=== PATIENT | female | born 1980 | race Caucasian/White ===

== ENCOUNTER 2022-11-24 14:19 | Emergency (ER) | payer SELFPAY ==
[2022-11-24 14:21] VITALS: BP 131/74; PULSE 119; RESP 18; TEMP 37.1; O2SAT 97
[2022-11-24 15:41] VITALS: BP 134/88; PULSE 108; RESP 18; O2SAT 98
--- NOTE | 2022-11-24 15:47 | PC.NURSE ---
pt left d/t wait time
== END 2022-11-24 16:00 | disposition left against medical advice (07) ==
LOC: ANHED 15:57
DX: M79.672 Pain in left foot (principal); M79.671 Pain in right foot
CPT/HCPCS: 99199

== ENCOUNTER 2022-12-12 14:32 | Outpatient (CLI) | payer OTHER, SELFPAY ==
--- NOTE | ~2022-12-12 | XR_ITS ---
XR_[id number] 12/12/2022 15:00 Indication: Osteoarthritis. Procedure: 3 views of the cervical spine Comparison: No prior studies for comparison. Findings: Normal cervical alignment. Vertebral body and disc heights are preserved. No fracture, subl uxation or dislocation. No prevertebral soft tissue swelling. Odontoid process is unremarkable. Lung apices are normal. Impression: 1: No significant abnormality of the cervical spine. Reviewed, dictated and finalized at location A. Impression: 1: No significant abnormality of the cervical spine.
--- NOTE | ~2022-12-12 | XR_ITS ---
LUMBAR SPINE INDICATION: Arthritis. TECHNIQUE: 3 views lumbar spine COMPARISON: None FINDINGS: Normal lumbar alignment. There is mild disc narrowing at L4-5. Vertebral body heights are m aintained. No acute fracture or traumatic malalignment. Pedicles are intact. Sacral foramen are symme tric. There are tubal ligation clips in the pelvis. IMPRESSION: 1: Mild lumbar spondylosis. Reviewed, dictated and finalized at location A. IMPRESSION: 1: Mild lumbar spondylosis.
--- NOTE | ~2022-12-12 | XR_ITS ---
XR hand BI arthritis min 3V 12/12/2022 15:00 INDICATION: Arthritis. PROCEDURE: 4 views of each hand COMPARISON: No prior studies for comparison. FINDINGS: Fracture, dislocation or subluxation is not identified. No significant degenerative change or joint space narrowing. No erosive changes. The soft tissues appear within normal limits. No fore ign bodies are identified. IMPRESSION: 1: No significant bone or joint abnormality. Reviewed, dictated and finalized at location A.
--- NOTE | ~2022-12-12 | XR_ITS ---
XR sacroiliac joints min 3V 12/12/2022 15:00 Indication: Osteoarthritis. Procedure: 3 views of the sacroiliac joints Comparison: No prior studies for comparison. Findings: Sacroiliac joints are symmetric bilaterally without significant degenerative change, ankylo sis or erosion. There are tubal ligation clips. Sacral foramen are symmetric. Impression: 1: No significant abnormality of the sacroiliac joints. Reviewed, dictated and finalized at location A. Impression: 1: No significant abnormality of the sacroiliac joints.
[2022-12-12 15:56] LABS: Uric Acid 4.8 mg/dL (2.5-7.5)
[2022-12-12 16:53] LABS: Complement C3 165 mg/dL (88-165)
[2022-12-12 18:13] LABS: Vitamin D 25 Hydroxy 40.1 ng/mL
[2022-12-12 18:23] LABS: Thyroid Stimulating Hormone Reflex 0.953 uIU/mL (0.465-4.68)
[2022-12-16 04:00] LABS: Thyroid Peroxidase Antibodies 1 IU/mL (<9)
[2022-12-17 20:05] LABS: SM Antibody <1.0; SM/RNP Antibody <1.0; SS-A <1.0; SS-B <1.0
[2022-12-18 12:19] LABS: Anti Cyclic Citrullinated Pept <16 Units (<20)
== END 2022-12-12 14:33 | disposition home or self-care (01) ==
PROVIDERS: Visit Provider Internal Medicine
DX: M19.90 Unspecified osteoarthritis, unspecified site (principal); K58.9 Irritable bowel syndrome, unspecified; F17.200 Nicotine dependence, unspecified, uncomplicated; M25.571 Pain in right ankle and joints of right foot; M25.572 Pain in left ankle and joints of left foot; Z71.89 Other specified counseling; Z79.899 Other long term (current) drug therapy; R53.83 Other fatigue; M47.896 Other spondylosis, lumbar region
CPT/HCPCS: 36415; 72040; 72100; 72202; 73130; 82306; 84443; 84550; 86160; 86200; 86225; 86235; 86376

== ENCOUNTER 2022-12-23 07:27 | Outpatient (CLI) | payer OTHER, SELFPAY ==
--- NOTE | ~2022-12-23 | MR_ITS ---
MRI of the left foot Clinical History: Pain Technique: T1-weighted and STIR images, axial T1-weighted, T2 fat-sat, and T1 fat-sat images, and cor onal T1-weighted and T2 fat-sat images were performed. Following intravenous administration of 13 cc MultiHance gadolinium, T1-weighted fat-sat imaging was performed in the axial, coronal, and sagittal planes. Findings: Bone marrow signals are unremarkable. No fracture, marrow edema in height. No evidence for osteitis. No erosive change or evidence for active inflammatory arthropathy. Joint spaces are preserv ed throughout the foot. Small subtalar joint effusion noted. Flexor and extensor tendons appear intact. No intermetatarsal bursitis or Vigil's neuroma evident. P lantar fascia is intact. Plantar musculature of the foot is unremarkable. No soft tissue mass or flui d collection evident. No abnormal postcontrast enhancement identified. IMPRESSION: Small subtalar joint effusion, otherwise unremarkable exam. Reviewed, dictated and finalized at location .
--- NOTE | ~2022-12-23 | MR_ITS ---
MRI of the right foot Clinical History: Pain Technique: T1-weighted and STIR images, axial T1-weighted, T2 fat-sat, and T1 fat-sat images, and cor onal T1-weighted and T2 fat-sat images were performed. Following intravenous administration of 13 cc MultiHance gadolinium, T1-weighted fat-sat imaging was performed in the axial, coronal, and sagittal planes. Findings: Bone marrow signals are unremarkable. No fracture, marrow edema in height. No evidence for osteitis. No erosive change or evidence for active inflammatory arthropathy. Joint spaces are preserv ed throughout the foot. Small subtalar joint effusion noted. Flexor and extensor tendons appear intact. No intermetatarsal bursitis or Vigil's neuroma evident. P lantar fascia is intact. Plantar musculature of the foot is unremarkable. No soft tissue mass or flui d collection evident. No abnormal postcontrast enhancement identified. IMPRESSION: Small subtalar joint effusion, otherwise unremarkable exam. Reviewed, dictated and finalized at location .
== END 2022-12-23 07:28 | disposition home or self-care (01) ==
PROVIDERS: Visit Provider Internal Medicine
DX: M19.90 Unspecified osteoarthritis, unspecified site (principal); M25.472 Effusion, left ankle
CPT/HCPCS: 73720; A9577

== ENCOUNTER 2023-01-23 12:09 | Outpatient (CLI) | payer OTHER, SELFPAY ==
--- NOTE | ~2023-01-23 | MR_ITS ---
EXAMINATION: MR sacroiliac jts wo/w con DATE: 01/23/2023 13:55 INDICATION: Sacroiliitis. Bilateral hip pain. Inflammatory arthritis. TECHNIQUE: Magnetic resonance imaging (MRI) of the sacroiliac joints was performed without and with 1 4 mL MultiHance intravenous contrast. COMPARISON: None. FINDINGS: There is 3 mm retrolisthesis of L4 on L5. There is mild lumbar spondylosis. There is mild o steoarthritis of the sacroiliac joints with osteophytes and mild subchondral edema-like marrow signal intensity in the iliac bones. IMPRESSION: 1. Mild osteoarthritis of the sacroiliac joints. No evidence of inflammatory arthropathy. Reviewed, dictated and finalized at location E. IMPRESSION: 1. Mild osteoarthritis of the sacroiliac joints. No evidence of inflammatory ar thropathy.
[2023-01-23 12:43] LABS: Hematocrit 39.3 % (37.0-47.0); Mean Corpuscular HGB Conc 33.1 g/dl (32-36); Mean Corpuscular Volume 87.5 fl (80-100); Mean Platelet Volume 8.6 fl (7.4-10.4); Platelet Count Result 333 k/mm3 (150-375); Red Blood Count 4.49 M/mm3 (4.2-5.4); Red Cell Distribution Width 15.4 % (11.5-14.5)
[2023-01-23 12:59] LABS: CRP 3.5 mg/dL (<1.0)
[2023-01-23 14:48] LABS: Erythrocyte Sedimentation Rate 23 mm/hr (0-20)
[2023-01-28 05:09] LABS: Angiotensin Converting Enzyme 10 U/L (9-67)
[2023-01-31 20:32] LABS: Calprotectin, Stool 81 mcg/g
== END 2023-01-23 12:10 | disposition home or self-care (01) ==
PROVIDERS: Visit Provider Internal Medicine
DX: R53.83 Other fatigue (principal); F17.200 Nicotine dependence, unspecified, uncomplicated; M19.90 Unspecified osteoarthritis, unspecified site; M25.551 Pain in right hip; M25.552 Pain in left hip; M47.819 Spondylosis without myelopathy or radiculopathy, site unspecified; M16.0 Bilateral primary osteoarthritis of hip
CPT/HCPCS: 36415; 72197; 82164; 83993; 85027; 85652; 86140; 86812; 99212; A9577; G0463